=== PATIENT | male | born 1940 | race Caucasian/White ===

== ENCOUNTER 2017-06-25 12:53 | Inpatient (IN) | payer MEDICARE, SELFPAY ==
[2017-06-25] VITALS (10 sets, daily range): BP systolic 104–140; BP diastolic 51–63; PULSE 56–105; RESP 15–24; TEMP 36.8–40; O2SAT 94–96; BMI 27.2; BMI 27.3
--- NOTE | 2017-06-25 13:15 | EKG12_ITS ---
Test Reason : DYSRHYTHMIA Blood Pressure : / mmHG Vent. Rate : 099 BPM Atrial Rate : 099 BPM P-R Int : 164 ms QRS Dur : 076 ms QT Int : 332 ms P-R-T Axes : 067 011 093 degrees QTc Int : 426 ms Normal sinus rhythm Nonspecific ST and T wave abnormality Abnormal ECG Confirmed by LYLY JOE, LIMA ([id number]), loan expeditor ABRAM GAINES ([id number] on 06/27/2017 1:47:33 PM Referred By: RADHA Confirmed By:LIMA DESOUZA MD
--- NOTE | 2017-06-25 13:19 | RAD_ITS ---
STUDY: X-RAY CHEST REASON FOR EXAM: Male, 77 years old. Cough and weakness TECHNIQUE: Single AP portable view of the chest. COMPARISON: None. FINDINGS: Right chest wall Mediport with tip in the mid SVC. The lungs are clear and expanded. There is no demonstrated pleural abnormality. Normal size heart. Normal mediastinum and allison. Normal visualized pulmonary arteries. Normal visualized aortic arch and descending thoracic aorta. Normal visualized thoracic spine. Normal visualized ribs, clavicles, and shoulders. There is no demonstrated abnormality of the visualized soft tissue structures of the upper abdomen. RAD/Chest 1 View (Portable) IMPRESSION: Normal x-ray examination of the chest. Electronically Signed: Anibal Thomas DO at 13:54 EDT Tel , Service support ,
[2017-06-25 13:44] LABS: Absolute Lymphocyte Count 0.71 X10^3/ul (0.83-4.51); Absolute Neutrophil Count 0.1 X10^3/uL (2.0-7.7); Basophil# 0.02 X10^3/uL; Basophil% 1.1 % (0-1); Eosinophil# 0.03 X10^3/uL; Eosinophils% 1.7 % (0-5); Hemoglobin 10.1 g/dl (13.0-16.5); Lymphocyte # 0.71 X10^3/ul (4.0); Lymphocyte % 40.6 % (19-41); Mean Corp Hgb Conc 33.7 g/gl (32-36); Mean Corpuscular Hgb 28.7 pg (27.0-32.0); Mean Corpuscular Volume 85.2 fL (80-94); Monocyte# 0.87 X10^3/uL; Monocyte% 49.7 % (0-10); Neutrophil # 0.11 X10^3/uL (2.7-7.7); Neutrophil % 6.3 % (47-70); Platelet Count 177 K/mm3 (150-450); RBC Distribution Width SD 42.1 fl (35.1-43.9); Red Blood Count 3.52 M/mm3 (4.6-6.2); White Blood Count 1.8 K/mm3 (4.4-11.0)
[2017-06-25] MEDS: Acetaminophen 160 MG/5 ML UDC 650 MG PO (13:44)
[2017-06-25] MEDS: 0.9% Normal Saline 1,000 ML IV.SOLN. 2400 ML IV (13:45)
[2017-06-25 13:48] LABS: Differential Indicated SCAN CRITERIA MET; POSITIVE COUNT NO; POSITIVE DIFFERENTIAL YES; POSITIVE MORPHOLOGY YES
[2017-06-25 13:50] LABS: Lactic Acid 1.8 mmol/L (0.4-2.0)
--- NOTE | 2017-06-25 13:57 | ED.RN ---
notified Dr. Busch of K+ 2.5
[2017-06-25 13:58] LABS: ALB/GLOB Ratio 0.5 RATIO (0.9-2.4); AST(SGOT) 10 U/L (15-37); Alanine Aminotransfer ALT/SGPT 17 U/L (16-61); Alkaline Phosphatase 69 U/L (45-117); Anion Gap 10 (5-15); BUN 11 mg/dL (7-18); BUN/Creat Ratio 11.8 RATIO (10-20); Calcium,Total 7.5 mg/dL (8.5-10.1); Chloride 104 mmol/L (98-107); Creatinine, Serum 0.93 mg/dL (0.70-1.30); EST Glomerular Filtration Rate 83 mL/min (>60); Est Glom Filt Rate - Afr Amer 100 mL/min (>60); Estimated Creatinine Clearance 60.22 ml/min; Glucose 103 mg/dL (74-106); Potassium 2.5 mmol/L (3.5-5.1); Sodium Level 139 mmol/L (136-145)
[2017-06-25 14:12] LABS: International Normalized Ratio 1.5; Prothrombin Time (Protime)PT. 17.7 SECONDS (11.7-14.9)
[2017-06-25 14:13] LABS: Partial Thromboplast Time 33.7 Seconds (24.1-36.2)
[2017-06-25 14:19] LABS: Bacteria 0 SEEN /hpf (None Seen); Mucous, Urine 0 SEEN /hpf (<or=2+); Squamous Epithelial Cells - UA 0 SEEN /hpf (0-5); White Blood Cells 0 SEEN /hpf (0-5)
[2017-06-25] MEDS: Piperacil/Tazobactam 3.375 GM/50 ML ML IV ×2 (14:25→21:57)
[2017-06-25 14:31] LABS: Color, Urine Brown (Yellow); Glucose, Dipstick Normal (Normal); Ketone-Dipstick 5 mg/dl (Negative); Leukocyte Esterase-Dipstick 25 /ul (Negative); Nitrite-Dipstick Negative (Negative); Occult Blood-Urine 250 /ul (Negative); Protein-Dipstick 100 mg/dl (Negative); Specific Gravity, Urine 1.015 (1.002-1.030); Urine Bilirubin Dipstick Negative (Negative); Urine Clarity Sl. Cloudy (Clear); Urine Urobilinogen 1 mg/dl (Normal)
[2017-06-25 14:33] LABS: Differential Comment SCANNED
[2017-06-25 14:47] LABS: Red Blood Cells-Urine > 100 SEEN /hpf (0-5)
[2017-06-25 15:47] LABS: Magnesium 1.7 mg/dL (1.6-2.6)
[2017-06-25] MEDS: Acetaminophen 325 MG Tablet 650 MG PO (15:51)
[2017-06-25] MEDS: 0.9% Normal Saline 1,000 ML 999 ML IV ×2 (16:13→17:27)
--- NOTE | 2017-06-25 16:36 | PCM.HP.STD ---
<Julianna Marin - Last Filed: 06/25/17 17:21> Problem List (1) Colon cancer Status: Chronic (2) Hypertension Status: Chronic History of Present Illness Date of Admission: 06/25/17 Chief Complaint: Nausea, diarrhea, progressive weakness. The patient is a 77 year old M who presents to the emergency room with progressive weakness, diarrhea, and poor appetite. Patient states he has had severe diarrhea for the past 2 weeks, reporting 10 stools per day. He denies nausea, emesis. Complains of intermittent chills but denies subjective fever. Denies abdominal pain. Denies chest pain, shortness of breath. Denies exposure to illness. Denies cough. Patient is undergoing chemotherapy with Dr. Foster for metastatic colon cancer. His second chemotherapy treatment was two weeks ago. He had stool studies completed as outpatient which did not show any infectious etiology of diarrhea. He was started empirically on levaquin 06/23/2017 as outpatient as well as Imodium and notes improvement of diarrhea. He reports his main concern is weakness and states he is barely able to walk. He notes he has lost approximately 45 pounds in the past 2 months. He states his appetite is poor and nothing tastes good. His other past medical history includes hypertension. Past Medical History Past Medical History (Chronic Problems): Chronic Problems Colon cancer (Chronic) Hypertension (Chronic) Allergies Sulfa (Sulfonamide Antibiotics) Allergy (Verified 06/25/17 12:58) Other Home Medications: Ambulatory Orders Medication Instructions Recorded Amlodipine [Norvasc] 5 mg PO DAILY 06/25/17 Dexamethasone [Decadron] 4 mg PO BID 06/25/17 Levofloxacin [Levaquin] 500 mg PO DAILY 06/25/17 Loperamide HCl [Loperamide] 2 mg PO DAILY PRN 06/25/17 Olanzapine 10 mg PO QHS 06/25/17 Ondansetron [Zofran] 8 mg PO Q8H PRN PRN 06/25/17 Temazepam [Restoril] 15 mg PO QHS PRN PRN 06/25/17 Surgical History: - - Bilateral rotator cuff surgery, hernia repair, Mediport placement, sigmoid stent ?3, right ureteral stent. Smoking Status: Never smoker Review of Systems Constitutional: Reports: Chills, Fever, Weakness, Weight Change - -45 lbs 2 months, Fatigue HEENT: Denies: Head Aches, Sinus Congestion, Sinus Drainage Cardiovascular: Denies: Chest Pain, Palpitations, Syncope Respiratory: Denies: Cough, Shortness of breath at rest, Sputum production Gastrointestinal: Reports: Diarrhea, Nausea. Denies: Abdominal Pain, Vomiting Genitourinary: Denies: Dysuria Musculoskeletal: Denies: Joint Pain, Joint Tenderness Skin: Denies: Rash, Wounds Neurological: Denies: Numbness, Tingling, Focal weakness Psychiatric: Denies: Anxiety, Depression, Homicidal Ideations, Suicidal Ideations Hematologic/ Lymphatic: Denies: Easy Bruising, Easy Bleeding VTE Information - Inpt Only VTE Present on Admission: No VTE Mechan Device Prophylaxis: None VTE Pharm Prophylaxis ordered?: Yes - Physical Exam General: Alert, Oriented x3, Cooperative, No apparent distress HEENT: Atraumatic, PERRLA, EOMI, Normocephalic Neck: Supple, No JVD, Negative Carotid Bruits Lungs: Clear to auscultation, Normal air movement Cardiovascular: Regular Rhythm, Normal S1, Normal S2, No murmurs, Tachycardic Abdomen: Bowel Sounds Present, Soft, Non Tender, Non-Distended Extremities: No clubbing, No cyanosis, No edema, Capillary Refill Less than 3 Seconds Skin: No rashes, No breakdown Musculoskeletal: No Tenderness to Palpation of Joints or Extremities Neurological: Cranial nerves II-XII grossly intact, Neuro grossly intact Psych/Mental Status: Normal Affect, Appropriate Vital Signs Temp Pulse Resp BP Pulse Ox 99 F 89 21 H 116/57 L 94 06/25/17 14:50 06/25/17 14:50 06/25/17 14:50 06/25/17 14:50 06/25/17 14:50 Oxygen Delivery Method Room Air Weight: 79.1 kg Body Mass Index (BMI) 27.3 Assessment/Plan 1. Intractable diarrhea with associated progressive weakness and dehydration-secondary to chemotherapy. On Chemotherapy, second treatment two weeks ago. C. difficile and enteric pathogen completed as outpatient were negative. Phenergan and Zofran as needed for nausea. Continue IV Zosyn and IV vancomycin empirically. Continue as needed loperamide. Aggressive IV fluids. PT/OT. Nutrition consult. 2. Neutropenic fever-oncology following. Patient started on Granix. Was started on Levaquin as outpatient 06/23/2017. Urinalysis unremarkable. Chest x-ray shows normal examination of the chest. Continue IV Zosyn and vancomycin empirically. 3. Hypokalemia-potassium 2.5 on admission. Replace IV. Trend BMP. 4. Metastatic Colon Cancer- Follows with Dr. Foster who is consulted. Undergoing chemotherapy. Second treatment completed 2 weeks ago. History of 3 sigmoid stents placed secondary to blockages from tumor. 5. Hypertension-continue home amlodipine regimen. 6. Protein calorie malnutrition with recent significant weight loss-patient reports a weight loss of 45 pounds since approximately March or April. Consult nutrition. DVT prophylaxis-Lovenox subcu. This patient was seen by EDWIN Albarran under the supervision of Dr. Nielsen. <Brijesh Nielsen - Last Filed: 06/25/17 17:53> History of Present Illness [] Seen and examined. Patient was given last chemo about 10 days ago and had severe diarrhea since then. Patient was given 3 L of normal saline yesterday and started on Levaquin for neutropenic fever by Dr. Garzon. Agree with above note. Past Medical History Allergies Sulfa (Sulfonamide Antibiotics) Allergy (Verified 06/25/17 12:58) Other - Physical Exam General: Alert, Oriented x3, Cooperative HEENT: Atraumatic, PERRLA, EOMI, Normocephalic Neck: Supple, No JVD, Negative Carotid Bruits Lungs: Clear to auscultation, Normal air movement Cardiovascular: No murmurs, Tachycardic Abdomen: Bowel Sounds Present, Soft, Non Tender, Non-Distended Extremities: No edema, Capillary Refill Less than 3 Seconds Skin: No rashes, No breakdown Musculoskeletal: No Tenderness to Palpation of Joints or Extremities Neurological: Cranial nerves II-XII grossly intact Psych/Mental Status: Normal Affect, Appropriate Vital Signs Temp Pulse Resp BP Pulse Ox 98.4 F 75 16 104/51 L 96 06/25/17 16:43 06/25/17 16:43 06/25/17 16:43 06/25/17 16:43 06/25/17 16:43 Oxygen Delivery Method Room Air Weight: 174 lb 6.17 oz Body Mass Index (BMI) 27.3 Assessment/Plan This patient was seen in conjunction with Julianna ENAMORADO. I have independently interviewed and examined the patient and reviewed pertinent history, examination findings, laboratory and plan of management. I have reviewed the note and agree with the documented findings with the few additional points. In brief, patient is admitted for neutropenic fever secondary to chemotherapy along with severe dehydration due to diarrhea. Exact focus of infection unclear. On IV vancomycin and Zosyn. MRSA nasal screen. Patient had 2 days of Levaquin as an outpatient. Discussed with oncologist, Dr. Garzon and he agrees with the above treatment. He put him on Granix I have discussed my assessment with RETORT COOLER, Julianna and orders have been reviewed. Code Visit Inpatient E&M: 53366 Init Hosp L3
--- NOTE | 2017-06-25 17:10 | HP.PCM_ITS ---
<Julianna Marin - Last Filed: 06/25/17 17:21> Problem List (1) Colon cancer Status: Chronic (2) Hypertension Status: Chronic History of Present Illness Date of Admission: 06/25/17 Chief Complaint: Nausea, diarrhea, progressive weakness. The patient is a 77 year old M who presents to the emergency room with progressive weakness, diarrhea, and poor appetite. Patient states he has had severe diarrhea for the past 2 weeks, reporting 10 stools per day. He denies nausea, emesis. Complains of intermittent chills but denies subjective fever. Denies abdominal pain. Denies chest pain, shortness of breath. Denies exposure to illness. Denies cough. Patient is undergoing chemotherapy with Dr. Foster for metastatic colon cancer. His second chemotherapy treatment was two weeks ago. He had stool studies completed as outpatient which did not show any infectious etiology of diarrhea. He was started empirically on levaquin 06/23 as outpatient as well as Imodium and notes improvement of diarrhea. He reports his main concern is weakness and states he is barely able to walk. He notes he has lost approximately 45 pounds in the past 2 months. He states his appetite is poor and nothing tastes good. His other past medical history includes hypertension. Past Medical History Past Medical History (Chronic Problems): Chronic Problems Colon cancer (Chronic) Hypertension (Chronic) Allergies Sulfa (Sulfonamide Antibiotics) Allergy (Verified 06/25/17 12:58) Other Home Medications: Ambulatory Orders Medication Instructions Recorded Amlodipine [Norvasc] 5 mg PO DAILY 06/25/17 Dexamethasone [Decadron] 4 mg PO BID 06/25/17 Levofloxacin [Levaquin] 500 mg PO DAILY 06/25/17 Loperamide HCl [Loperamide] 2 mg PO DAILY PRN 06/25/17 Olanzapine 10 mg PO QHS 06/25/17 Ondansetron [Zofran] 8 mg PO Q8H PRN PRN 06/25/17 Temazepam [Restoril] 15 mg PO QHS PRN PRN 06/25/17 Surgical History: - - Bilateral rotator cuff surgery, hernia repair, Mediport placement, sigmoid stent ?3, right ureteral stent. Smoking Status: Never smoker Review of Systems Constitutional: Reports: Chills, Fever, Weakness, Weight Change - -45 lbs 2 months, Fatigue HEENT: Denies: Head Aches, Sinus Congestion, Sinus Drainage Cardiovascular: Denies: Chest Pain, Palpitations, Syncope Respiratory: Denies: Cough, Shortness of breath at rest, Sputum production Gastrointestinal: Reports: Diarrhea, Nausea. Denies: Abdominal Pain, Vomiting Genitourinary: Denies: Dysuria Musculoskeletal: Denies: Joint Pain, Joint Tenderness Skin: Denies: Rash, Wounds Neurological: Denies: Numbness, Tingling, Focal weakness Psychiatric: Denies: Anxiety, Depression, Homicidal Ideations, Suicidal Ideations Hematologic/ Lymphatic: Denies: Easy Bruising, Easy Bleeding VTE Information - Inpt Only VTE Present on Admission: No VTE Mechan Device Prophylaxis: None VTE Pharm Prophylaxis ordered?: Yes - Physical Exam General: Alert, Oriented x3, Cooperative, No apparent distress HEENT: Atraumatic, PERRLA, EOMI, Normocephalic Neck: Supple, No JVD, Negative Carotid Bruits Lungs: Clear to auscultation, Normal air movement Cardiovascular: Regular Rhythm, Normal S1, Normal S2, No murmurs, Tachycardic Abdomen: Bowel Sounds Present, Soft, Non Tender, Non-Distended Extremities: No clubbing, No cyanosis, No edema, Capillary Refill Less than 3 Seconds Skin: No rashes, No breakdown Musculoskeletal: No Tenderness to Palpation of Joints or Extremities Neurological: Cranial nerves II-XII grossly intact, Neuro grossly intact Psych/Mental Status: Normal Affect, Appropriate Vital Signs Temp Pulse Resp BP Pulse Ox 99 F 89 21 H 116/57 L 94 06/25/17 14:50 06/25/17 14:50 06/25/17 14:50 06/25/17 14:50 06/25/17 14:50 Oxygen Delivery Method Room Air Weight: 79.1 kg Body Mass Index (BMI) 27.3 Assessment/Plan 1. Intractable diarrhea with associated progressive weakness and dehydration- secondary to chemotherapy. On Chemotherapy, second treatment two weeks ago. C. difficile and enteric pathogen completed as outpatient were negative. Phenergan and Zofran as needed for nausea. Continue IV Zosyn and IV vancomycin empirically. Continue as needed loperamide. Aggressive IV fluids. PT/OT. Nutrition consult. 2. Neutropenic fever-oncology following. Patient started on Granix. Was started on Levaquin as outpatient 06/23/2017. Urinalysis unremarkable. Chest x- ray shows normal examination of the chest. Continue IV Zosyn and vancomycin empirically. 3. Hypokalemia-potassium 2.5 on admission. Replace IV. Trend BMP. 4. Metastatic Colon Cancer- Follows with Dr. Foster who is consulted. Undergoing chemotherapy. Second treatment completed 2 weeks ago. History of 3 sigmoid stents placed secondary to blockages from tumor. 5. Hypertension-continue home amlodipine regimen. 6. Protein calorie malnutrition with recent significant weight loss-patient reports a weight loss of 45 pounds since approximately March or April. Consult nutrition. DVT prophylaxis-Lovenox subcu. This patient was seen by EDWIN Albarran under the supervision of Dr. Nielsen. <Brijesh Nielsen - Last Filed: 06/25/17 17:53> History of Present Illness [] Seen and examined. Patient was given last chemo about 10 days ago and had severe diarrhea since then. Patient was given 3 L of normal saline yesterday and started on Levaquin for neutropenic fever by Dr. Garzon. Agree with above note. Past Medical History Allergies Sulfa (Sulfonamide Antibiotics) Allergy (Verified 06/25/17 12:58) Other - Physical Exam General: Alert, Oriented x3, Cooperative HEENT: Atraumatic, PERRLA, EOMI, Normocephalic Neck: Supple, No JVD, Negative Carotid Bruits Lungs: Clear to auscultation, Normal air movement Cardiovascular: No murmurs, Tachycardic Abdomen: Bowel Sounds Present, Soft, Non Tender, Non-Distended Extremities: No edema, Capillary Refill Less than 3 Seconds Skin: No rashes, No breakdown Musculoskeletal: No Tenderness to Palpation of Joints or Extremities Neurological: Cranial nerves II-XII grossly intact Psych/Mental Status: Normal Affect, Appropriate Vital Signs Temp Pulse Resp BP Pulse Ox 98.4 F 75 16 104/51 L 96 06/25/17 16:43 06/25/17 16:43 06/25/17 16:43 06/25/17 16:43 06/25/17 16:43 Oxygen Delivery Method Room Air Weight: 174 lb 6.17 oz Body Mass Index (BMI) 27.3 Assessment/Plan This patient was seen in conjunction with Julianna ENAMORADO. I have independently interviewed and examined the patient and reviewed pertinent history, examination findings, laboratory and plan of management. I have reviewed the note and agree with the documented findings with the few additional points. In brief, patient is admitted for neutropenic fever secondary to chemotherapy along with severe dehydration due to diarrhea. Exact focus of infection unclear. On IV vancomycin and Zosyn. MRSA nasal screen. Patient had 2 days of Levaquin as an outpatient. Discussed with oncologist, Dr. Garzon and he agrees with the above treatment. He put him on Granix I have discussed my assessment with TAX FORM PREPARER, Julianna and orders have been reviewed. Code Visit Inpatient E&M: 76700 Init Hosp L3
--- NOTE | 2017-06-25 17:24 | PCM.RX.CS ---
Consult Pharmacy has been consulted to manage selected antiobiotic: Vancomycin Type of Consult: New start Suspected Infection: Other - Neutropenic fever Prior Doses of Antibiotics Received/Current Regimen: Received vancomycin 1250mg IV in ED today at 15:00 Labs: Sodium 139 mmol/L (136-145) 06/25/17 13:06 Potassium 2.5 mmol/L (3.5-5.1) L* 06/25/17 13:06 Chloride 104 mmol/L (98-107) 06/25/17 13:06 Carbon Dioxide 25.0 mmol/L (21.0-32.0) 06/25/17 13:06 Anion Gap 10 (5-15) 06/25/17 13:06 BUN 11 mg/dL (7-18) 06/25/17 13:06 Creatinine 0.93 mg/dL (0.70-1.30) 06/25/17 13:06 Est GFR (MDRD) Af Amer 100 mL/min (>60) 06/25/17 13:06 Est GFR (MDRD) Non-Af 83 mL/min (>60) 06/25/17 13:06 BUN/Creatinine Ratio 11.8 RATIO (10-20) 06/25/17 13:06 Glucose 103 mg/dL (74-106) 06/25/17 13:06 Weight used for dosin kg Estimated Creatinine Clearance: 60 ml/min Goal Trough: 15-20 mcg/mL Pharmacy Plan for Drug Dosing: After initial dose of 1250mg in ED, will continue with 1000mg IV q12h to aim for a trough level in the range of 15-20. Pharmacy Service will continue to monitor and adjust dosing as required. Follow-Up Labs: Trough Vancomycin Labs to be done on [date and time ordered]: 06/27/17 before the dose at 15:00
[2017-06-25] MEDS: Enoxaparin 80 MG/0.8 ML Syringe SC (17:28)
--- NOTE | 2017-06-25 17:29 | CON.PCM_ITS ---
- Consult Date of Consult: 06/25/[address] Nielsen patient of Dr. Fink with metastatic colon cancer receiving chemotherapy. Patient present with neutropenic fever and hypotension subsequently admitted. My recommendations will be communicated to Dr. Nielsen and by electronic medical records. - Reason for Consult Neutropenic fever Mucositis and diarrhea secondary to chemotherapy Dehydration and possible sepsis metastatic colon cancer HPI: Ill man presented with abnormal pain subsequently diagnosed with a sigmoid mass. He would reveal adenocarcinoma of the colon, PET showing kanwal and peritoneal metastasis along with kidney stone. Right renal stent was placed ureteral obstruction. Patient also had a repeat colonoscopy and rectal stent placement on 05/09/17. He had a Mediport placement and subsequent he started chemotherapy of this month. He had his second cycle of chemotherapy with FOLFOX 2 weeks ago. Present with moderate nausea after chemotherapy. But had watery diarrhea for 5 days saw him yesterday office. Watery stool up to 10 times a day with lower abdominal pain but denies rectal bleeding. Appetite was poor and has lost 15 pounds since his last visit 2 weeks ago. In the office, x-ray show ileus. He did not had fever. + mucositis, no thrush and grade 3 diarrhea. Orthostatic and the 3 L NSS. He was also neutropenic I started him on Levaquin 500mg daily. Stool culture and C. difficile toxins were negative. He has no cough or shortness of breath. Also started Imodium yesterday and his diarrhea has improved. Does not feel well it morning, weak and tired this morning he had a fever of 104 at the emergency room. No nausea or vomiting. PMH; medication allergy personally reviewed by me today. ROS: 10 systems review otherwise negative as stated above. Exam: Vital Signs Temp Pulse Pulse Resp BP BP Pulse Ox 06/25/17 16:43 98.4 F 75 16 104/51 L 96 06/25/17 14:50 99 F 89 21 H 116/57 L 94 06/25/17 14:48 99 F 06/25/17 14:15 89 21 H 116/57 L 94 06/25/17 13:15 105 H 22 H 140/60 H 96 06/25/17 12:54 104 F H 103 H 24 H 130/63 H 96 General: Patient appear to be in no acute distress. HEENT: Sclerae anicteric: Mucous membranes show grade 1 stomatitis or thrush Neck: Supple no enlarged node or thyromegaly Chest: Clear to auscultation no wheezing, wheezes or rhonchi. Cardiovascular: Rhythm is regular, tachycardic, normal intensity S1-S2 Abdomen: Distended, nontender no organomegaly, decreased bowel sounds, no tenderness. Extremities: No swelling or edema. Neurogical: Grossly nonfocal Impressions Chest X-Ray 06/25/17 13:19 IMPRESSION: Normal x-ray examination of the chest. Electronically Signed: Anibal Thomas DO at 13:54 EDT Tel , Service support , 06/25/17 13:19 Chest 1 View (Portable) [RAD] Stat Laboratory Results 06/25/17 06/25/17 06/25/17 Range/Units 13:06 13:06 13:06 WBC 1.8 L (4.4-11.0) K/mm3 RBC 3.52 L (4.6-6.2) M/mm3 Hgb 10.1 L (13.0-16.5) g/dl Hct 30.0 L (40-54) % MCV 85.2 (80-94) fL MCH 28.7 (27.0-32.0) pg MCHC 33.7 (32-36) g/gl RDW 14.0 (11.6-14.6) % RDW Differential 42.1 (35.1-43.9) fl Plt Count 177 (150-450) K/mm3 MPV 9.0 (6.2-12.0) fl Immature Gran % (Auto) 0.600 (0.0-0.9) % Neut % (Auto) 6.3 L (47-70) % Lymph % (Auto) 40.6 (19-41) % [place] % (Auto) 49.7 H (0-10) % Eos % (Auto) 1.7 (0-5) % Baso % (Auto) 1.1 H (0-1) % Absolute Neuts (auto) 0.1 L (2.0-7.7) X10^3/uL Absolute Lymphs (auto) 0.71 L (0.83-4.51) X10^3/ul Total Counted Not Reportable Differential Comment SCANNED PT 17.7 H (11.7-14.9) SECONDS INR 1.5 APTT 33.7 (24.1-36.2) Seconds Sodium 139 (136-145) mmol/L Potassium 2.5 L* (3.5-5.1) mmol/L Chloride 104 (98-107) mmol/L Carbon Dioxide 25.0 (21.0-32.0) mmol/L Anion Gap 10 (5-15) BUN 11 (7-18) mg/dL Creatinine 0.93 (0.70-1.30) mg/dL Estim Creat Clear Calc 60.22 ml/min Est GFR (MDRD) Af Amer 100 (>60) mL/min Est GFR (MDRD) Non-Af 83 (>60) mL/min BUN/Creatinine Ratio 11.8 (10-20) RATIO Glucose 103 (74-106) mg/dL Lactic Acid (0.4-2.0) mmol/L Calcium 7.5 L (8.5-10.1) mg/dL Magnesium (1.6-2.6) mg/dL Total Bilirubin 0.50 (0.20-1.00) mg/dL AST 10 L (15-37) U/L ALT 17 (16-61) U/L Alkaline Phosphatase 69 (45-117) U/L Troponin I < 0.02 (<0.06) ng/mL Total Protein 6.0 L (6.4-8.2) g/dL Albumin 2.0 L (3.2-5.0) g/dL Globulin 4.0 (2.2-4.2) g/dL Albumin/Globulin Ratio 0.5 L (0.9-2.4) RATIO Urine Color (Yellow) Urine Clarity (Clear) Urine pH (5.0 - 8.0) Ur Specific [place] (1.002-1.030) Urine Protein (Negative) mg/dl Urine Glucose (UA) (Normal) mg/dl Urine Ketones (Negative) mg/dl Urine Occult Blood (Negative) /ul Urine Nitrite (Negative) Urine Bilirubin (Negative) mg/dL Urine Urobilinogen (Normal) mg/dl Ur Leukocyte Esterase (Negative) /ul Urine RBC (0-5) /hpf Urine WBC (0-5) /hpf Ur Squamous Epith Cells (0-5) /hpf Urine Bacteria (None Seen) /hpf Urine Mucus (<or=2+) /hpf 06/25/17 06/25/17 06/25/17 Range/Units 13:06 13:06 14:10 WBC (4.4-11.0) K/mm3 RBC (4.6-6.2) M/mm3 Hgb (13.0-16.5) g/dl Hct (40-54) % MCV (80-94) fL MCH (27.0-32.0) pg MCHC (32-36) g/gl RDW (11.6-14.6) % RDW Differential (35.1-43.9) fl Plt Count (150-450) K/mm3 MPV (6.2-12.0) fl Immature Gran % (Auto) (0.0-0.9) % Neut % (Auto) (47-70) % Lymph % (Auto) (19-41) % [place] % (Auto) (0-10) % Eos % (Auto) (0-5) % Baso % (Auto) (0-1) % Absolute Neuts (auto) (2.0-7.7) X10^3/uL Absolute Lymphs (auto) (0.83-4.51) X10^3/ul Total Counted Differential Comment PT (11.7-14.9) SECONDS INR APTT (24.1-36.2) Seconds Sodium (136-145) mmol/L Potassium (3.5-5.1) mmol/L Chloride (98-107) mmol/L Carbon Dioxide (21.0-32.0) mmol/L Anion Gap (5-15) BUN (7-18) mg/dL Creatinine (0.70-1.30) mg/dL Estim Creat Clear Calc ml/min Est GFR (MDRD) Af Amer (>60) mL/min Est GFR (MDRD) Non-Af (>60) mL/min BUN/Creatinine Ratio (10-20) RATIO Glucose (74-106) mg/dL Lactic Acid 1.8 (0.4-2.0) mmol/L Calcium (8.5-10.1) mg/dL Magnesium 1.7 (1.6-2.6) mg/dL Total Bilirubin (0.20-1.00) mg/dL AST (15-37) U/L ALT (16-61) U/L Alkaline Phosphatase (45-117) U/L Troponin I (<0.06) ng/mL Total Protein (6.4-8.2) g/dL Albumin (3.2-5.0) g/dL Globulin (2.2-4.2) g/dL Albumin/Globulin Ratio (0.9-2.4) RATIO Urine Color Brown (Yellow) Urine Clarity Sl. Cloudy (Clear) Urine pH 5.0 (5.0 - 8.0) Ur Specific [place] 1.015 (1.002-1.030) Urine Protein 100 H (Negative) mg/dl Urine Glucose (UA) Normal (Normal) mg/dl Urine Ketones 5 H (Negative) mg/dl Urine Occult Blood 250 H (Negative) /ul Urine Nitrite Negative (Negative) Urine Bilirubin Negative (Negative) mg/dL Urine Urobilinogen 1 H (Normal) mg/dl Ur Leukocyte Esterase 25 H (Negative) /ul Urine RBC > 100 SEEN (0-5) /hpf Urine WBC 0 SEEN (0-5) /hpf Ur Squamous Epith Cells 0 SEEN (0-5) /hpf Urine Bacteria 0 SEEN (None Seen) /hpf Urine Mucus 0 SEEN (<or=2+) /hpf Assessment/Plan: 77-year-old gentleman with metastatic colon cancer presenting with neutropenic fever, possible sepsis. Hypotension secondary to dehydration & diarrhea and poor appetite, stool culture and C. difficile toxin has been negative. Diarrhea and mucositis is consistent with toxicity secondary to chemotherapy Recommendations: -Continue IV fluid -Blood cultures and urine culture pending on sepsis protocol -Neutropenic precautions -Continue Vancomycin and Zosyn -Start Neupogen/Granix 480mcg sq daily for neutropenia -Liquid diet & advanced to BRAT diet as tolerated -Imodium as needed for diarrhea -DPD 5FU phenotype - pending before proceeding with next cycle of chemotherapy. cc: Chivo Foster; Dr. Lamont Nielsen; Dr. Emerson Medrano
[2017-06-25] MEDS: TBO-FILGRASTIM 480 MCG/0.8 ML ML SC (17:38)
[2017-06-25] MEDS: Potassium Chloride 40 MEQ in 0.9% Normal Saline 1,000 ML 150 MEQ IV (18:40)
[2017-06-25 20:48] LABS: M R Staph aureus DNA By PCR Negative (Negative); Probe Check PASS; Specimen Processing Control PASS
[2017-06-25] MEDS: OLANZapine 10 MG Tablet PO (21:59)
[2017-06-26] VITALS (13 sets, daily range): BP systolic 105–134; BP diastolic 50–74; PULSE 66–78; RESP 15–24; TEMP 36.4–36.9; O2SAT 93–97
[2017-06-26] MEDS: Potassium Chloride 40 MEQ in 0.9% Normal Saline 1,000 ML 150 MEQ IV ×4 (02:11→23:45)
[2017-06-26] MEDS: 0.9% NaCl Peripheral Flush Adult/Peds IV (04:32)
[2017-06-26 05:00] LABS: Absolute Lymphocyte Count 0.71 X10^3/ul (0.83-4.51); Absolute Neutrophil Count 1.6 X10^3/uL (2.0-7.7); Basophil# 0.03 X10^3/uL; Basophil% 0.8 % (0-1); Eosinophil# 0.02 X10^3/uL; Eosinophils% 0.5 % (0-5); Hematocrit 27.5 % (40-54); Lymphocyte # 0.71 X10^3/ul (4.0); Lymphocyte % 19.4 % (19-41); Mean Corp Hgb Conc 32.7 g/gl (32-36); Mean Corpuscular Volume 85.7 fL (80-94); Mean Platelet Vol. 9.3 fl (6.2-12.0); Monocyte# 1.25 X10^3/uL; Monocyte% 34.2 % (0-10); Neutrophil # 1.63 X10^3/uL (2.7-7.7); Neutrophil % 44.6 % (47-70); Platelet Count 181 K/mm3 (150-450); RBC Distribution Width CV 14.1 % (11.6-14.6); RBC Distribution Width SD 42.6 fl (35.1-43.9); Red Blood Count 3.21 M/mm3 (4.6-6.2); White Blood Count 3.7 K/mm3 (4.4-11.0)
[2017-06-26 05:04] LABS: Differential Indicated SCAN CRITERIA MET; POSITIVE COUNT NO; POSITIVE DIFFERENTIAL NO; POSITIVE MORPHOLOGY YES
[2017-06-26 05:36] LABS: Anion Gap 9 (5-15); BUN 9 mg/dL (7-18); BUN/Creat Ratio 11.7 RATIO (10-20); Calcium,Total 7.3 mg/dL (8.5-10.1); Creatinine, Serum 0.77 mg/dL (0.70-1.30); EST Glomerular Filtration Rate 103 mL/min (>60); Est Glom Filt Rate - Afr Amer 125 mL/min (>60); Glucose 135 mg/dL (74-106); Magnesium 1.8 mg/dL (1.6-2.6); Potassium 3.4 mmol/L (3.5-5.1); Sodium Level 143 mmol/L (136-145)
[2017-06-26 05:37] LABS: Phosphorus 1.7 mg/dL (2.5-4.9)
[2017-06-26 05:49] LABS: Chloride 114 mmol/L (98-107)
[2017-06-26 06:05] LABS: Differential Comment SCANNED
[2017-06-26 06:06] LABS: Atypical Lymphocyte RARE %
[2017-06-26] MEDS: Piperacil/Tazobactam 3.375 GM/50 ML ML IV ×3 (06:28→21:01)
--- NOTE | 2017-06-26 08:11 | PCM.PROGNOTE ---
Subjective: Feeling better today. Decreased mouth sore and no diarrhea. One episode of loose stool last night, no abdominal pain, nausea or vomiting. Hematuria this morning. - Physical Exam General: Alert, Oriented x3 HEENT: Atraumatic, PERRLA, EOMI Oral: No Gingival or Mucosal Lesions/ Ulcerations, Dry Mucosa Neck: Supple, No JVD Lungs: Clear to auscultation Cardiovascular: Regular rate, Regular Rhythm, Normal S1, Normal S2, No murmurs Abdomen: Bowel Sounds Present, Soft, Non Tender, Non-Distended, No Hepato-splenomegaly Extremities: No clubbing, No cyanosis, No edema Skin: No rashes Lymphatic: No Cervical, Supraclavicular, or Inguinal Adenopathy Neurological: Neuro grossly intact Psych/Mental Status: Normal Affect Vital Signs Temp Pulse Resp BP Pulse Ox 97.5 F L 66 15 105/54 L 95 06/26/17 06:00 06/26/17 07:20 06/26/17 06:00 06/26/17 06:00 06/26/17 06:00 Oxygen Delivery Method Room Air Weight: 174 lb 6.17 oz Body Mass Index (BMI) 27.3 Intake and Output for Last 24 Hours 06/24/17 06/25/17 06/26/17 23:59 23:59 23:59 Intake Total 2240 / 2240 4525 / 4525 Output Total 250 / 250 1000 / 1000 Balance 1989 / 1989 3525 / 3525 Laboratory Tests Past 24 Hrs 06/25/17 06/26/17 06/26/17 17:50 04:30 04:30 WBC 3.7 L RBC 3.21 L Hgb 9.0 L Hct 27.5 L MCV 85.7 MCH 28.0 MCHC 32.7 RDW 14.1 RDW Differential 42.6 Plt Count 181 MPV 9.3 Immature Gran % (Auto) 0.500 Neut % (Auto) 44.6 L Lymph % (Auto) 19.4 [place] % (Auto) 34.2 H Eos % (Auto) 0.5 Baso % (Auto) 0.8 Absolute Neuts (auto) 1.6 L Absolute Lymphs (auto) 0.71 L Total Counted Not Reportable Differential Comment SCANNED Atypical Lymphocytes RARE Sodium 143 Potassium 3.4 L Chloride 114 H Carbon Dioxide 22.0 Anion Gap 9 BUN 9 Creatinine 0.77 Estim Creat Clear Calc 56.00 Est GFR (MDRD) Af Amer 125 Est GFR (MDRD) Non-Af 103 BUN/Creatinine Ratio 11.7 Glucose 135 H Calcium 7.3 L Phosphorus Magnesium 1.8 MRSA (PCR) Negative 06/26/17 04:30 WBC RBC Hgb Hct MCV MCH MCHC RDW RDW Differential Plt Count MPV Immature Gran % (Auto) Neut % (Auto) Lymph % (Auto) [place] % (Auto) Eos % (Auto) Baso % (Auto) Absolute Neuts (auto) Absolute Lymphs (auto) Total Counted Differential Comment Atypical Lymphocytes Sodium Potassium Chloride Carbon Dioxide Anion Gap BUN Creatinine Estim Creat Clear Calc Est GFR (MDRD) Af Amer Est GFR (MDRD) Non-Af BUN/Creatinine Ratio Glucose Calcium Phosphorus 1.7 L Magnesium MRSA (PCR) Medical Necessity - Tobacco Use Smoking Status: Never smoker Assessment/Plan 1) neutropenic fever-resolved Plan: -Continue IV fluid -Blood cultures and urine culture pending on sepsis protocol -Neutropenic precautions -Continue Zosyn & DC vancomycin ( MRSA negative ) -DC amlodipine & monitor blood pressure 2) diarrhea & mucositis -improved Plan: -advanced to BRAT diet as tolerated -On lactobacillus -Imodium as needed for diarrhea 3) hematuria-patient had a kidney stone and ureteral stent (possible UTI) and on Lovenox Plan: -DC Lovenox; start EDDY hoses -Urology tomorrow if he has persistent hematuria 4) metastatic colon cancer- s/p colonic stents and chemotherapy Plan; -Hold Chemotherapy until patient recovered -DPD 5FU phenotype - pending before proceeding with next cycle of chemotherapy. -Physical therapy evaluation -Follow-up with Dr. Foster in 1-2 weeks. cc: Dr. Chivo Foster; Dr. Emerson Medrano
--- NOTE | 2017-06-26 15:59 | PN_ITS ---
<Julianna Marin - Last Filed: 06/26/17 16:00> Subjective: Patient seen and examined. States his weakness is improved today. Complains of hematuria overnight. Denies fever, chills. Denies nausea, vomiting, diarrhea. Denies other complaints. - Physical Exam General: Alert, Oriented x3, Cooperative HEENT: Atraumatic, PERRLA, EOMI, Normocephalic Neck: Supple, No JVD, Negative Carotid Bruits Lungs: Clear to auscultation, Normal air movement Cardiovascular: Regular rate, Regular Rhythm, Normal S1, Normal S2, No murmurs Abdomen: Bowel Sounds Present, Soft, Non Tender, Non-Distended Extremities: No clubbing, No cyanosis, No edema, Capillary Refill Less than 3 Seconds Skin: No rashes, No breakdown, - - Right chest port Musculoskeletal: No Tenderness to Palpation of Joints or Extremities Neurological: Cranial nerves II-XII grossly intact, Neuro grossly intact Psych/Mental Status: Normal Affect, Appropriate Vital Signs Temp Pulse Resp BP Pulse Ox 98.2 F 72 16 129/74 H 96 06/26/17 13:50 06/26/17 15:13 06/26/17 13:50 06/26/17 13:50 06/26/17 13:50 Oxygen Delivery Method Room Air Weight: 79.1 kg Body Mass Index (BMI) 27.3 Intake and Output for Last 24 Hours 06/24/17 06/25/17 06/26/17 23:59 23:59 23:59 Intake Total 2240 / 2240 5345 / 5345 Output Total 250 / 250 1400 / 1400 Balance 1989 3945 / 3945 Laboratory Tests Past 24 Hrs 06/25/17 06/26/17 06/26/17 17:50 04:30 04:30 WBC 3.7 L RBC 3.21 L Hgb 9.0 L Hct 27.5 L MCV 85.7 MCH 28.0 MCHC 32.7 RDW 14.1 RDW Differential 42.6 Plt Count 181 MPV 9.3 Immature Gran % (Auto) 0.500 Neut % (Auto) 44.6 L Lymph % (Auto) 19.4 [place] % (Auto) 34.2 H Eos % (Auto) 0.5 Baso % (Auto) 0.8 Absolute Neuts (auto) 1.6 L Absolute Lymphs (auto) 0.71 L Total Counted Not Reportable Differential Comment SCANNED Atypical Lymphocytes RARE Sodium 143 Potassium 3.4 L Chloride 114 H Carbon Dioxide 22.0 Anion Gap 9 BUN 9 Creatinine 0.77 Estim Creat Clear Calc 56.00 Est GFR (MDRD) Af Amer 125 Est GFR (MDRD) Non-Af 103 BUN/Creatinine Ratio 11.7 Glucose 135 H Calcium 7.3 L Phosphorus Magnesium 1.8 MRSA (PCR) Negative 06/26/17 04:30 WBC RBC Hgb Hct MCV MCH MCHC RDW RDW Differential Plt Count MPV Immature Gran % (Auto) Neut % (Auto) Lymph % (Auto) [place] % (Auto) Eos % (Auto) Baso % (Auto) Absolute Neuts (auto) Absolute Lymphs (auto) Total Counted Differential Comment Atypical Lymphocytes Sodium Potassium Chloride Carbon Dioxide Anion Gap BUN Creatinine Estim Creat Clear Calc Est GFR (MDRD) Af Amer Est GFR (MDRD) Non-Af BUN/Creatinine Ratio Glucose Calcium Phosphorus 1.7 L Magnesium MRSA (PCR) Medical Necessity - Tobacco Use Smoking Status: Never smoker Assessment/Plan 1. Intractable diarrhea with associated progressive weakness and dehydration- improved. Secondary to chemotherapy. On Chemotherapy, second treatment two weeks ago. C. difficile and enteric pathogen completed as outpatient were negative. Phenergan and Zofran as needed for nausea. Continue IV Zosyn and IV vancomycin empirically. Continue as needed loperamide. Aggressive IV fluids. PT/OT. Nutrition consult. Diet advance to brat diet as tolerated. Continue lactobacillus supplement. 2. Neutropenic fever-resolved. Oncology following. Patient started on Granix. Was started on Levaquin as outpatient 06/23/2017. Urinalysis unremarkable. Chest x-ray shows normal examination of the chest. Continue IV Zosyn and vancomycin empirically. Blood and urine cultures pending. 3. Hypokalemia-replaced. Trend BMP. 4. Metastatic Colon Cancer- Follows with Dr. Foster who is consulted. Undergoing chemotherapy. Second treatment completed 2 weeks ago. History of 3 sigmoid stents placed secondary to blockages from tumor. Chemotherapy will be on hold until patient is stable. He will follow-up with Dr. Foster in 1-2 weeks. 5. Hypertension-home amlodipine regimen on hold. 6. Protein calorie malnutrition with recent significant weight loss-patient reports a weight loss of 45 pounds since approximately March or April. Consult nutrition. 7. Hematuria-secondary to Lovenox. Resolved. Discontinue Lovenox. Consult urology if hematuria persists. DVT prophylaxis-Lovenox discontinued secondary to hematuria. EDDY rodríguez. This patient was seen by EDWIN Albarran under the supervision of Dr. Nielsen. <Brijesh Nielsen - Last Filed: 06/26/17 17:26> Subjective: Seen and examined. Overall patient looks better. No shortness of breath. No nausea vomiting or diarrhea. Had hematuria yesterday night and Lovenox discontinued. - Physical Exam Lungs: Normal air movement Abdomen: Bowel Sounds Present, Non Tender, Non-Distended Vital Signs Temp Pulse Resp BP Pulse Ox 98.2 F 72 16 129/74 H 96 06/26/17 13:50 06/26/17 15:13 06/26/17 13:50 06/26/17 13:50 06/26/17 13:50 Oxygen Delivery Method Room Air Weight: 174 lb 6.17 oz Body Mass Index (BMI) 27.3 Intake and Output for Last 24 Hours 06/24/17 06/25/17 06/26/17 23:59 23:59 23:59 Intake Total 2240 / 2240 5345 / 5345 Output Total 250 / 250 1400 / 1400 Balance 1989 3945 / 3945 Laboratory Tests Past 24 Hrs 06/25/17 06/26/17 06/26/17 17:50 04:30 04:30 WBC 3.7 L RBC 3.21 L Hgb 9.0 L Hct 27.5 L MCV 85.7 MCH 28.0 MCHC 32.7 RDW 14.1 RDW Differential 42.6 Plt Count 181 MPV 9.3 Immature Gran % (Auto) 0.500 Neut % (Auto) 44.6 L Lymph % (Auto) 19.4 [place] % (Auto) 34.2 H Eos % (Auto) 0.5 Baso % (Auto) 0.8 Absolute Neuts (auto) 1.6 L Absolute Lymphs (auto) 0.71 L Total Counted Not Reportable Differential Comment SCANNED Atypical Lymphocytes RARE Sodium 143 Potassium 3.4 L Chloride 114 H Carbon Dioxide 22.0 Anion Gap 9 BUN 9 Creatinine 0.77 Estim Creat Clear Calc 56.00 Est GFR (MDRD) Af Amer 125 Est GFR (MDRD) Non-Af 103 BUN/Creatinine Ratio 11.7 Glucose 135 H Calcium 7.3 L Phosphorus Magnesium 1.8 MRSA (PCR) Negative 06/26/17 04:30 WBC RBC Hgb Hct MCV MCH MCHC RDW RDW Differential Plt Count MPV Immature Gran % (Auto) Neut % (Auto) Lymph % (Auto) [place] % (Auto) Eos % (Auto) Baso % (Auto) Absolute Neuts (auto) Absolute Lymphs (auto) Total Counted Differential Comment Atypical Lymphocytes Sodium Potassium Chloride Carbon Dioxide Anion Gap BUN Creatinine Estim Creat Clear Calc Est GFR (MDRD) Af Amer Est GFR (MDRD) Non-Af BUN/Creatinine Ratio Glucose Calcium Phosphorus 1.7 L Magnesium MRSA (PCR) Assessment/Plan This patient was seen in conjunction with Garett MAK. I have independently interviewed and examined the patient and reviewed pertinent history, examination findings, laboratory and plan of management. I have reviewed the note and agree with the documented findings with the few additional points. In brief, patient is admitted for neutropenic fever secondary to chemotherapy for colon cancer. Intractable nausea vomiting and diarrhea most related to mucositis due to chemotherapy side effect. Discussed with Dr. Garzon. Hypokalemia: Potassium being replaced. I have discussed my assessment with Garett MAK and orders have been reviewed. Code Visit Inpatient E&M: 09381 Subs Hosp L3
[2017-06-27 02:50] VITALS: BP 135/76; PULSE 79; RESP 18; TEMP 36.6; O2SAT 94
[2017-06-27 02:59] VITALS: PULSE 84
[2017-06-27] MEDS: 0.9% NaCl Peripheral Flush Adult/Peds IV (04:26)
[2017-06-27 04:53] LABS: Anion Gap 10 (5-15); BUN 16 mg/dL (7-18); BUN/Creat Ratio 18.7 RATIO (10-20); Calcium,Total 7.4 mg/dL (8.5-10.1); Chloride 114 mmol/L (98-107); Creatinine, Serum 0.85 mg/dL (0.70-1.30); EST Glomerular Filtration Rate 92 mL/min (>60); Est Glom Filt Rate - Afr Amer 111 mL/min (>60); Estimated Creatinine Clearance 65.88 ml/min; Glucose 95 mg/dL (74-106); Potassium 3.8 mmol/L (3.5-5.1); Sodium Level 145 mmol/L (136-145)
[2017-06-27 05:06] LABS: Hematocrit 29.2 % (40-54); Hemoglobin 9.6 g/dl (13.0-16.5); Mean Corp Hgb Conc 32.9 g/gl (32-36); Mean Corpuscular Hgb 27.9 pg (27.0-32.0); Mean Corpuscular Volume 84.9 fL (80-94); Mean Platelet Vol. 9.8 fl (6.2-12.0); Platelet Count 227 K/mm3 (150-450); Red Blood Count 3.44 M/mm3 (4.6-6.2); White Blood Count 14.7 K/mm3 (4.4-11.0)
[2017-06-27] MEDS: Piperacil/Tazobactam 3.375 GM/50 ML ML IV (05:16)
[2017-06-27 05:17] LABS: Differential Indicated MANUAL DIFF; POSITIVE COUNT NO; POSITIVE DIFFERENTIAL NO; POSITIVE MORPHOLOGY YES
[2017-06-27 05:37] LABS: Lymphocyte 8 % (19-41); Metamyelocyte 4 % (0-1); Monocyte 9 % (0-10); Myelocyte 1 (0-0); Neutrophil-Band 8 % (0-5); Nucleated Red Bld Cells,Manual 2 % (0-5); Plasma Cell 1 %; Total Cells Counted 100 (MANUAL DIFF)
[2017-06-27 05:38] LABS: Neutrophil-Segmented 69 % (47-70); Platelet Estimate ADEQUATE (ADEQ); Red Cell Morphology NORM C+C NORMAL (NORM C&C); Toxic Granulation 2+
[2017-06-27 05:39] LABS: Absolute Lymphocyte Count 1.18 X10^3/ul (0.83-4.51); Absolute Neutrophil Count 11.3 X10^3/uL (2.0-7.7); Lymphocyte # 1.18 X10^3/ul (4.0); Neutrophil # 11.32 X10^3/uL (2.7-7.7)
[2017-06-27 05:40] LABS: NRBC Flagged by Analyzer 0.7 % (0-5)
[2017-06-27 06:59] VITALS: PULSE 80
[2017-06-27] MEDS: Potassium Chloride 40 MEQ in 0.9% Normal Saline 1,000 ML 150 MEQ IV (07:05)
[2017-06-27 08:48] VITALS: BP 144/72; PULSE 90; RESP 16; TEMP 36.7; O2SAT 93
[2017-06-27 11:10] VITALS: PULSE 115
--- NOTE | 2017-06-27 11:33 | PCM.DC ---
- Discharge Diagnoses Current Active Problems: Current Active and Chronic Problems Colon cancer (Chronic) Hypertension (Chronic) You will use the following diet at home:: No restrictions Discharge Activity: Return to Normal Activity Call your doctor if you observe: Fever of 101 or Higher, Shortness of breath, Dizziness, Fainting spells, Chest pain, Increased palpitations (irregular heartbeat) Allergies/Adverse Reactions: Allergies Sulfa (Sulfonamide Antibiotics) Allergy (Verified 06/25/17 12:58) Other Medications to take at Discharge Amlodipine [Norvasc] 5 mg PO DAILY 06/25/17 Dexamethasone [Decadron] 4 mg PO BID 06/25/17 Loperamide HCl [Loperamide] 2 mg PO DAILY PRN 06/25/17 Olanzapine 10 mg PO QHS 06/25/17 Ondansetron [Zofran] 8 mg PO Q8H PRN PRN 06/25/17 Temazepam [Restoril] 15 mg PO QHS PRN PRN 06/25/17 Lactobacillus Acidophilus [Acidophilus] 1 tab PO TID #90 tab 06/27/17 The following prescriptions were given: Lactobacillus Acidophilus [Acidophilus] 1 tab PO TID #90 tab Primary Care Physician: Emerson Medrano MD [Primary Care Provider] - Please follow up with your Primary Care Physician in: 1 Week Please Follow Up With: Chivo Foster DO When: As scheduled, 07/01/17 Proposed Discharge Date: 06/27/17
--- NOTE | 2017-06-27 11:37 | PCM.DC.SUM ---
Discharge Date and Diagnosis Date of Admission: 06/25/17 Date of Discharge: 06/27/17 - Primary Discharge Diagnosis 1. Chemotherapy-induced intractable diarrhea with associated progressive weakness and dehydration 2. Neutropenic fever 3. Hypokalemia 4. Protein calorie malnutrition - Secondary Discharge Diagnosis Chronic Problems Colon cancer (Chronic) Hypertension (Chronic) Hospital Course and Treatment Imaging Results: Diagnostic Data Chest X-Ray 06/25/17 13:19 IMPRESSION: Normal x-ray examination of the chest. Electronically Signed: Anibal Thomas DO at 13:54 EDT Tel , Service support , Dr. Boyer- Oncology Operations: None Procedures: None Summary of Care Provided: Patient is a 77-year-old male admitted 06/25/2017 due to nausea, diarrhea, progressive weakness. His medical history includes metastatic colon cancer and hypertension. 1. Intractable diarrhea with associated progressive weakness and dehydration-resolved. On Chemotherapy, second treatment two weeks ago. C. difficile and enteric pathogen completed as outpatient were negative. Continue home Zofran regimen as needed for nausea. Encouraged fluid intake. Patient can continue as needed loperamide at discharge for diarrhea. Patient received aggressive IV fluids during admission. Continue lactobacillus supplement at discharge. Patient will follow up with Dr. Foster on 07/01/2017 as previously scheduled. 2. Neutropenic fever-resolved. Oncology following. Patient started on Granix. Was started on Levaquin as outpatient 06/23/2017. Urinalysis unremarkable. Chest x-ray shows normal examination of the chest. Patient received IV Zosyn and IV vancomycin empirically. Blood cultures show no growth in 48 hours. Oncology recommended discontinuing antibiotics at discharge. 3. Hypokalemia-replaced. Trend BMP. 4. Metastatic Colon Cancer- Follows with Dr. Foster who is consulted. Undergoing chemotherapy. Second treatment completed 2 weeks ago. History of 3 sigmoid stents placed secondary to blockages from tumor. Chemotherapy will be on hold until patient is stable. He will follow-up with Dr. Foster as scheduled on 07/01/2017. 5. Hypertension-continue home amlodipine regimen of 5 mg daily. 6. Protein calorie malnutrition with recent significant weight loss-patient reports a weight loss of 45 pounds since approximately March or April. Continue ensure supplementation at discharge. 7. Hematuria-secondary to Lovenox. Resolved. This patient was seen by EDWIN Albarran under the supervision of Dr. Beard. Discharge Diet: No Restrictions Discharge Activity: Return to Normal Activity Call your doctor if you observe: Fever of 101 or Higher, Shortness of breath, Dizziness, Fainting spells, Chest pain, Increased palpitations (irregular heartbeat) Home Medications: Medications to take at Discharge Amlodipine [Norvasc] 5 mg PO DAILY 06/25/17 Dexamethasone [Decadron] 4 mg PO BID 06/25/17 Loperamide HCl [Loperamide] 2 mg PO DAILY PRN 06/25/17 Olanzapine 10 mg PO QHS 06/25/17 Ondansetron [Zofran] 8 mg PO Q8H PRN PRN 06/25/17 Temazepam [Restoril] 15 mg PO QHS PRN PRN 06/25/17 Lactobacillus Acidophilus [Acidophilus] 1 tab PO TID #90 tab 06/27/17 Following Prescrptions Were Given to Patient: Lactobacillus Acidophilus [Acidophilus] 1 tab PO TID #90 tab Primary Care Physician: Emerson Medrano MD [Primary Care Provider] - Please follow up with your Primary Care Physician in: 1 Week Please Follow Up With: Chivo Foster DO When: As scheduled, 07/01/17 Disposition: Home Minutes spent on discharge:: 35 Patient Condition:: Stable Medical Necessity - Tobacco Use Smoking Status: Never smoker Meaningful Use Info Meaningful Use Diagnoses (Choose all that apply): None applicable
--- NOTE | 2017-06-27 11:44 | DS.PCM_ITS ---
Discharge Date and Diagnosis Date of Admission: 06/25/17 Date of Discharge: 06/27/17 - Primary Discharge Diagnosis 1. Chemotherapy-induced intractable diarrhea with associated progressive weakness and dehydration 2. Neutropenic fever 3. Hypokalemia 4. Protein calorie malnutrition - Secondary Discharge Diagnosis Chronic Problems Colon cancer (Chronic) Hypertension (Chronic) Hospital Course and Treatment Imaging Results: Diagnostic Data Chest X-Ray 06/25/17 13:19 IMPRESSION: Normal x-ray examination of the chest. Electronically Signed: Anibal Thomas DO at 13:54 EDT Tel , Service support , Dr. Boyer- Oncology Operations: None Procedures: None Summary of Care Provided: Patient is a 77-year-old male admitted 06/25/2017 due to nausea, diarrhea, progressive weakness. His medical history includes metastatic colon cancer and hypertension. 1. Intractable diarrhea with associated progressive weakness and dehydration- resolved. On Chemotherapy, second treatment two weeks ago. C. difficile and enteric pathogen completed as outpatient were negative. Continue home Zofran regimen as needed for nausea. Encouraged fluid intake. Patient can continue as needed loperamide at discharge for diarrhea. Patient received aggressive IV fluids during admission. Continue lactobacillus supplement at discharge. Patient will follow up with Dr. Foster on 07/01/2017 as previously scheduled. 2. Neutropenic fever-resolved. Oncology following. Patient started on Granix. Was started on Levaquin as outpatient 06/23/2017. Urinalysis unremarkable. Chest x-ray shows normal examination of the chest. Patient received IV Zosyn and IV vancomycin empirically. Blood cultures show no growth in 48 hours. Oncology recommended discontinuing antibiotics at discharge. 3. Hypokalemia-replaced. Trend BMP. 4. Metastatic Colon Cancer- Follows with Dr. Foster who is consulted. Undergoing chemotherapy. Second treatment completed 2 weeks ago. History of 3 sigmoid stents placed secondary to blockages from tumor. Chemotherapy will be on hold until patient is stable. He will follow-up with Dr. Foster as scheduled on 07/01/2017. 5. Hypertension-continue home amlodipine regimen of 5 mg daily. 6. Protein calorie malnutrition with recent significant weight loss-patient reports a weight loss of 45 pounds since approximately March or April. Continue ensure supplementation at discharge. 7. Hematuria-secondary to Lovenox. Resolved. This patient was seen by EDWIN Albarran under the supervision of Dr. Beard. Discharge Diet: No Restrictions Discharge Activity: Return to Normal Activity Call your doctor if you observe: Fever of 101 or Higher, Shortness of breath, Dizziness, Fainting spells, Chest pain, Increased palpitations (irregular heartbeat) Home Medications: Medications to take at Discharge Amlodipine [Norvasc] 5 mg PO DAILY 06/25/17 Dexamethasone [Decadron] 4 mg PO BID 06/25/17 Loperamide HCl [Loperamide] 2 mg PO DAILY PRN 06/25/17 Olanzapine 10 mg PO QHS 06/25/17 Ondansetron [Zofran] 8 mg PO Q8H PRN PRN 06/25/17 Temazepam [Restoril] 15 mg PO QHS PRN PRN 06/25/17 Lactobacillus Acidophilus [Acidophilus] 1 tab PO TID #90 tab 06/27/17 Following Prescrptions Were Given to Patient: Lactobacillus Acidophilus [Acidophilus] 1 tab PO TID #90 tab Primary Care Physician: Emerson Medrano MD [Primary Care Provider] - Please follow up with your Primary Care Physician in: 1 Week Please Follow Up With: Chivo Foster DO When: As scheduled, 07/01/17 Disposition: Home Minutes spent on discharge:: 35 Patient Condition:: Stable Medical Necessity - Tobacco Use Smoking Status: Never smoker Meaningful Use Info Meaningful Use Diagnoses (Choose all that apply): None applicable
--- NOTE | 2017-06-27 13:30 | NURSING ---
Reviewed and agreed on all charting with Anderson Hardy RN
--- NOTE | 2017-06-27 13:51 | CASEMGMT ---
Face to Face with patient for initial transition planning/care coordination assessment. TALITA GEIGER introduced self and role at [facility], pt voices understanding and consents to assessment at this time. Pt sitting up in chair in no distress at this time. Pt A/O x4 at this time and answers all questions appropriately at this time. Care providers, pharmacy, and demographics verified. See attached link. Pt voices no further questions/concerns at this time. Advised pt/ to ask for CM if any further questions/concerns/needs arise, voices understanding. PLAN: [place] TALITA GEIGER
[2017-06-28 13:07] LABS: Pathologist Review Reviewed
--- NOTE | 2017-07-06 02:27 | ED.VISSUMM ---
- ER Visit Summary Date of Service: 06/25/17 Please note this dictation was a late entry, entered on July 06, 2017. Chief Complaint: Dry mouth History of Present Illness: The patient is a 77 M with colon cancer on chemotherapy. He reports a dry mouth and trouble with oral intake. He is also having fevers, weakness, and abdominal pain. The abdominal pain is chronic and related to his cancer. He reports that the pain is not new. Physical Examination: Temperature 104. Tachycardic at 103 and respiratory rate 24. Blood pressure 130/63. 96% on room air. Patient appears unwell and chronically ill. Mucous membranes are dry. Heart is tachycardic. Lungs are clear. Abdomen is diffusely tender. No guarding or rebound. Skin appears normal. Alert and oriented. Test Results: EKG showed sinus rhythm at a rate of 99. Nonspecific ST and T-wave changes. White count 1.8. Hemoglobin 10.1. Potassium 2.5. Coags normal. Troponin normal. Lactate 1.8. Cultures pending. Chest x-ray showed no acute findings. Emergency Department Course and Treatment: Patient treated with fluids while awaiting results. He had Tylenol, potassium, and Dilaudid for pain. Patient has neutropenic fever and was treated with Zosyn and vancomycin. I spoke with the hospitalist who will admit. Treatment Plan: As above Disposition: Admission Impression: 1. Neutropenic fever 2. Hypokalemia 3. Anemia This note was generated with UserVoice dictation software. It may contain incorrect words, spelling, and punctuation that were not noted in review of the chart prior to signing ED Disposition - Plan for ED Patient: Disposition: Acute Care Hospital [facility] Chief Complaint: Fever
--- NOTE | 2017-07-06 02:31 | ED.DCSUM_ITS ---
- ER Visit Summary Date of Service: 06/25/17 Please note this dictation was a late entry, entered on July 06, 2017. Chief Complaint: Dry mouth History of Present Illness: The patient is a 77 M with colon cancer on chemotherapy. He reports a dry mouth and trouble with oral intake. He is also having fevers, weakness, and abdominal pain. The abdominal pain is chronic and related to his cancer. He reports that the pain is not new. Physical Examination: Temperature 104. Tachycardic at 103 and respiratory rate 24. Blood pressure 130/63. 96% on room air. Patient appears unwell and chronically ill. Mucous membranes are dry. Heart is tachycardic. Lungs are clear. Abdomen is diffusely tender. No guarding or rebound. Skin appears normal. Alert and oriented. Test Results: EKG showed sinus rhythm at a rate of 99. Nonspecific ST and T- wave changes. White count 1.8. Hemoglobin 10.1. Potassium 2.5. Coags normal. Troponin normal. Lactate 1.8. Cultures pending. Chest x-ray showed no acute findings. Emergency Department Course and Treatment: Patient treated with fluids while awaiting results. He had Tylenol, potassium, and Dilaudid for pain. Patient has neutropenic fever and was treated with Zosyn and vancomycin. I spoke with the hospitalist who will admit. Treatment Plan: As above Disposition: Admission Impression: 1. Neutropenic fever 2. Hypokalemia 3. Anemia This note was generated with Powtoon dictation software. It may contain incorrect words, spelling, and punctuation that were not noted in review of the chart prior to signing ED Disposition - Plan for ED Patient: Disposition: Acute Care Hospital [facility] Chief Complaint: Fever
== END 2017-06-27 13:29 | disposition home or self-care (01) | DRG 808 ==
LOC: ED 13:55 → PCU 14:49
PROVIDERS: Admitting Provider Internal Medicine; Emergency Provider Emergency Medicine; Family Provider Family Medicine; PCP Family Medicine; Visit Provider Internal Medicine
DX: D70.1 Agranulocytosis secondary to cancer chemotherapy (principal); E43 Unspecified severe protein-calorie malnutrition; C18.9 Malignant neoplasm of colon, unspecified; C78.6 Secondary malignant neoplasm of retroperitoneum and peritoneum; C77.9 Secondary and unspecified malignant neoplasm of lymph node, unspecified; D68.32 Hemorrhagic disorder due to extrinsic circulating anticoagulants; T45.1X5A Adverse effect of antineoplastic and immunosuppressive drugs, initial encounter; R50.81 Fever presenting with conditions classified elsewhere; K12.31 Oral mucositis (ulcerative) due to antineoplastic therapy; E87.6 Hypokalemia; E86.0 Dehydration; I95.89 Other hypotension; D63.8 Anemia in other chronic diseases classified elsewhere; I10 Essential (primary) hypertension; R31.9 Hematuria, unspecified; T45.515A Adverse effect of anticoagulants, initial encounter; Y92.230 Patient room in hospital as the place of occurrence of the external cause; Z68.27 Body mass index [BMI] 27.0-27.9, adult; Z79.899 Other long term (current) drug therapy
CPT/HCPCS: 36415; 36591; 71045; 80048; 80053; 81001; 83605; 83735; 84100; 84484; 85025; 85610; 85730; 87040; 87086; 87641; 93005; 97161; 97530; 97802; 99285; J7030; J7040; J7050; A4216; J1447